=== PATIENT | male | born 1955 | race Caucasian/White ===

== ENCOUNTER 2024-10-07 10:01 | Emergency (ER) | payer OTHER, MEDICARE, SELFPAY ==
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
[2024-10-07 10:13] VITALS: BP 139/77; PULSE 81; RESP 16; TEMP 36.9; O2SAT 100
[2024-10-07 11:05] VITALS: BP 142/86; PULSE 77; RESP 18; TEMP 36.4; O2SAT 96
[2024-10-07] MEDS: ACETAMINOPHEN 500 MG TABLET 1000 MG PO (12:06)
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
[2024-10-07] MEDS: KETOROLAC 15 MG/ML VIAL (*BKC) IV PUSH (12:58)
[2024-10-07] MEDS: CYCLOBENZAPRINE HCL 10 MG TABLET PO (12:59)
[2024-10-07 13:09] VITALS: BP 135/79; PULSE 79; RESP 18; TEMP 36.6; O2SAT 94
== END 2024-10-07 13:11 | disposition home or self-care (01) ==
PROVIDERS: Emergency Provider Emergency Medicine
DX: S13.4XXA Sprain of ligaments of cervical spine, initial encounter (principal); M47.812 Spondylosis without myelopathy or radiculopathy, cervical region; V43.52XA Car driver injured in collision with other type car in traffic accident, initial encounter
CPT/HCPCS: 70450; 72125; 96374; 99284; A9270; J1885